=== PATIENT | female | born 1960 | race Caucasian/White ===

== ENCOUNTER → 2021-12-14 | Day surgery (SDC) | payer OTHER ==
[~2021-12-14] VITALS: Ht 160 cm; Wt 71.7 kg
[~2021-12-14] MED LIST: ASCORBIC ACID500 MG PO; CARAFATE1 GM PO; COQ1050 MG PO; FERROUS GLUCON324 M2 PO; MAG-OXIDE 400M400 MG PO; MELATONIN PO; MINOXIDIL2.5 MG PO; PROTONIX 40MG T40 MG PO; PURE PO; RESVERATROL PO; SERTRALINE HCL50 MG PO; SPIRONOLACTONE25 M1 PO; TUMERIC PO; ZYRTEC10 M3 PO; [UNRECOGNIZED DRUG - OTHER] PO
== END | disposition home or self-care (01) ==
LOC: FAS 12-04 11:30
DX: K31.9 Disease of stomach and duodenum, unspecified (principal); K44.9 Diaphragmatic hernia without obstruction or gangrene; D50.9 Iron deficiency anemia, unspecified; K21.9 Gastro-esophageal reflux disease without esophagitis; E66.3 Overweight; Z88.5 Allergy status to narcotic agent; Z72.89 Other problems related to lifestyle; Z72.0 Tobacco use; Z87.19 Personal history of other diseases of the digestive system
CPT/HCPCS: J2704; J7120